=== PATIENT | female | born 1990 | race Two or more races ===

== ENCOUNTER 2024-01-29 19:14 | Emergency (ER) | payer MEDICAID, SELFPAY ==
[2024-01-29 19:26] VITALS: PULSE 88; RESP 18; O2SAT 97; BMI 29.8
[2024-01-29 19:50] VITALS: BP 125/80; PULSE 82; RESP 19; TEMP 36.5; O2SAT 96
--- NOTE | 2024-01-29 20:09 | XR_ITS ---
Examination: PA lateral chest 2 views Technique: Upright PA lateral chest 2 views Exam date and time: January 29, 20242018 hrs. Comparison September 30, 2023 Indications: Substernal chest pain today Findings: Normal heart size Lungs are clear The osseous structures are intact Impression: No active disease
--- NOTE | 2024-01-29 20:10 | EDRME_ITS ---
Rapid Medical Screening Exam RME Arrival date/time: 01/29/24 19:14 Chief Complaint: Anxiety Time Seen by Provider: 01/29/24 19:50 Vital signs: Vital Signs Temperature 97.7 F 01/29/24 19:50 Pulse Rate 82 01/29/24 19:50 Respiratory Rate 19 01/29/24 19:50 Blood Pressure 125/80 01/29/24 19:50 Pulse Oximetry (%) 96 01/29/24 19:50 Oxygen Delivery Method Room Air 01/29/24 19:50 Vital signs reviewed by provider: Yes RME Narrative: 33-year-old female with past medical history of anxiety disorder presents for evaluation of chest pressure. She describes it as sharp pressure that radiates from her back to her substernal chest. She reports that this has occurred intermittently x 1 day. She notes increased external stressors at home and work . States that her symptoms are different than prior panic attacks.
[2024-01-29 20:58] LABS: Collection Type, Urine Clean Catch
[2024-01-29 21:05] LABS: HCG Qualitative,Urine Negative
[2024-01-29 21:08] LABS: Bacteria,Urine Rare; Bilirubin,Urine Negative (Negative); Blood,Urine Negative (Negative); Clarity,Urine Clear (Clear/Hazy); Color,Urine Yellow (Lt Yel-Yel); Glucose, Urine Trace (Negative); Ketones,Urine 1+ (Negative); Leukocyte Esterase,Urine Negative (Negative); Nitrite,Urine Negative (Negative); Protein,Urine 1+ (Neg - Trace); RBC,Urine 2 /hpf (0-3); Specific Gravity,Urine 1.023 (1.001-1.035); Squamous Epithelial Cell,Urine 1 /hpf (0-5); WBC,Urine 4 /hpf (0-5)
[2024-01-29 21:09] LABS: Basophils % (Auto) 0 % (0-2.5); Eosinophils % (Auto) 0 % (0-10); Hematocrit 39.5 % (36.0-46.0); Hemoglobin 13.2 g/dL (12.0-16.0); Immature Granulocytes % (Auto) 1 % (0-0); Immature Granulocytes Auto 0.04 Thou/mm3 (0.00-0.00); Lymphocytes # (Auto) 0.9 Thou/mm3 (1.0-4.8); Lymphocytes % (Auto) 11 % (10-50); Mean Corpuscular HGB Conc 33.4 g/dl (31.0-37.0); Mean Corpuscular Hemoglobin 29.6 pg (25.0-35.0); Mean Corpuscular Volume 89 fL (80-100); Monocytes # (Auto) 0.4 Thou/mm3 (0.0-0.8); Monocytes % (Auto) 5 % (0-12); Neutrophils # (Auto) 6.8 Thou/mm3 (1.8-7.7); Neutrophils % (Auto) 83 % (37-80); Nucleated Red Blood Cell % 0 /100 WBC (0); Platelet Count 273 Thou/mm3 (140-440); RDW Standard Deviation 41.5 fL (36.4-46.3); Red Blood Count 4.46 Miln/mm3 (4.00-5.20); White Blood Count 8.2 Thou/mm3 (3.6-11.0)
[2024-01-29 21:17] LABS: Amphetamine/Methamp Scrn,U Negative (Negative); Barbiturate Screen,Urine Negative (Negative); Benzodiazepines Screen,Urine Negative (Negative); THC Screen,Urine Negative (Negative)
[2024-01-29 21:18] LABS: Benzoylecgonine Screen, Ur Negative (Negative); Fentanyl Screen,Urine Negative (Negative); Opiate Screen,Urine Negative (Negative)
[2024-01-29 21:21] LABS: INR 1.1 (0.9-1.3); Partial Thromboplastin Time 26.1 Seconds (22.0-36.0); Prothrombin Time 11.5 Seconds (9.0-12.2)
[2024-01-29 21:24] LABS: Alanine Aminotransferase 30 U/L (10-49); Albumin, Serum 4.8 gm/dL (3.5-5.0); Albumin/Globulin Ratio 1.7 (1.2-2.2); Alkaline Phosphatase 82 U/L (46-116); Anion Gap 5 (7-16); Aspartate Amino Transferase 34 U/L (0-34); B-Type Natriuretic Peptide < 20 pg/mL (0-100); BUN/Creatinine Ratio 18 Ratio (12-20); Bilirubin,Total 0.6 mg/dL (0.3-1.2); Blood Urea Nitrogen 11 mg/dL (9-23); Calcium 9.9 mg/dL (8.3-10.6); Calcium (Corrected) 9.9 mg/dL (8.5-10.1); Carbon Dioxide 28.3 mMol/L (20.0-31.0); Chloride 105 mMol/L (98-107); Creatinine (Component) 0.6 mg/dL (0.6-1.3); Estimated Creatinine Clearance 123.2 mL/min (>60); Globulin 2.8 gm/dL (2.3-3.5); Glucose 113 mg/dL (74-106); Magnesium 2.1 mg/dL (1.6-2.6); Osmolality,Calculated 276 (275-295); Potassium 3.4 mMol/L (3.4-5.1); Sodium 138 mMol/L (136-145); Total Protein 7.6 gm/dL (5.7-8.2); Troponin I < 0.002 ng/mL (0.0-0.045); eGFR > 60 See Note
[2024-01-29 22:34] VITALS: BP 108/71; PULSE 70; RESP 18; TEMP 37; O2SAT 98
--- NOTE | 2024-05-01 18:26 | EDNOTE_ITS ---
ED Anxiety RME/HPI General Chief Complaint: Anxiety Stated Complaint: ANXIETY Time Seen by Provider: 01/29/24 19:50 Arrival date/time: 01/29/24 19:14 Limitations: no limitations RME / HPI RME / HPI narrative: 33-year-old female with past medical history of anxiety disorder presents for evaluation of chest pressure. She describes it as sharp pressure that radiates from her back to her substernal chest. She reports that this has occurred intermittently x 1 day. She notes increased external stressors at home and work. States that her symptoms are different than prior panic attacks. Related Data Home Medications ?Medication ?Instructions ?Recorded ?Confirmed vitamins-iron fumarate 27 1 tab PO QDAY 07/03/19 12/19/22 mg iron-folic acid 0.8 mg tablet ( Vitamin) Previous Rx's ?Medication ?Instructions ?Recorded docusate sodium 100 mg capsule 100 mg PO BID #60 caps 12/19/22 (Colace) ibuprofen 800 mg tablet 800 mg PO Q6H PRN pain #120 tabs 12/19/22 lanolin 50 % topical ointment 1 applic topical TID PRN skin 12/19/22 irritation #15 tubes lorazepam 0.5 mg tablet (Ativan) 0.5 mg PO QDAY PRN anxiety #5 tabs 01/30/24 Allergies Allergy/AdvReac Type Severity Reaction Status Date / Time No Known Allergies Allergy Verified 12/19/22 13:13 Review of Systems Constitutional Constitutional: Reports as per HPI Cardiovascular Cardiovascular: Reports as per HPI and Denies dyspnea Respiratory Respiratory: Denies cough and Denies dyspnea Gastrointestinal Gastrointestinal: Denies nausea and Denies vomiting Neurologic Neurologic: Reports as per HPI Psychiatric Psychiatric: Reports anxiety Past Medical History Past Medical History NEUROLOGIC: Negative Neurological Disorders CARDIAC: Positive Hypertension; Negative Cardiac Disorders or Congestive Heart Failure RESPIRATORY: Negative Chronic Obstructive Pulmonary Disease (COPD) GASTROINTESTINAL: Negative Gastrointestinal Disorders, Hepatitis or Colorectal Cancer GENITOURINARY: Negative Genitourinary Disorders, Renal Disease or Prostate Cancer REPRODUCTIVE: Positive Previous Pregnancies; Negative Breast Cancer, Pelvic Inflammatory Disease or Testicular Cancer MUSCULOSKELETAL: Negative Musculoskeletal Disorders or Bone Cancer ENDOCRINE: Negative Endocrine Disorders, Diabetes Mellitus Type 1, Diabetes Mellitus Type 2, [place]'s Syndrome, [place]'s Disease or Adrenal Disease HEMATOLOGIC: Negative Blood Disorders OTHER HISTORY: Positive Hospitalization; Negative Autoimmune Disease, Down Syndrome, Developmental Delay, Shingles, Falls, Blood Transfusions, Blood Transfusion Reaction, Anesthesia Reactions, MRSA, VRSA, Vancomycin-Resistant Enterococci, Human Immunodeficiency Virus (HIV), Chicken Pox, Measles, Mumps, Pertussis, Clostridium Difficile, Cancer, Breast Cancer, Cervical Cancer, Colorectal Cancer, Lung Cancer, Ovarian Cancer, Prostate Cancer or Testicular Cancer Family History FAMILY HISTORY: Negative Family Psychiatric Problems, Family Respiratory Disorders, Family Cardiac Disorders, Family Gastrointestinal Problems, Family Cancer, Family Surgery or Family Anesthesia Reaction Surgical History SURGICAL: Negative Section Social History SMOKING STATUS: Never smoker ED Exam General Limitations: Present no limitations General appearance: Present alert and in no apparent distress Head Head exam: Present atraumatic and normocephalic Eye Eye exam: Present normal appearance and EOMI ENT ENT exam: Present normal exam and normal oropharynx Neck Neck exam: Present normal inspection and full ROM Respiratory Respiratory exam: Present normal lung sounds bilaterally; Absent respiratory distress Cardiovascular Cardiovascular exam: Present regular rate Neurological Exam Neurological exam: Present alert Psychiatric Psychiatric exam: Present anxious Skin Skin exam: Present warm and dry Course Quality Measures none Orders Category Date Time Status EKG (ED ONLY) *Do not use* NOW Care 01/29/24 20:09 Completed EKG (ED Only) Stat Exams 01/29/24 20:09 Ordered XR chest 2V Stat Exams 01/29/24 20:09 Completed B-Type Natriuretic Peptide Stat Lab 01/29/24 20:40 Completed CBC Stat Lab 01/29/24 20:40 Completed Comprehensive Metabolic Panel Stat Lab 01/29/24 20:40 Completed Drug Screen,Urine Stat Lab 01/29/24 20:30 Completed HCG Qualitative,Urine Stat Lab 01/29/24 20:30 Completed Magnesium Stat Lab 01/29/24 20:40 Completed Partial Thromboplastin Time Stat Lab 01/29/24 20:40 Completed Prothrombin Time with INR Stat Lab 01/29/24 20:40 Completed Troponin I Stat Lab 01/29/24 20:40 Completed Urinalysis Stat Lab 01/29/24 20:30 Completed Vital Signs Vital signs: Vital Signs Temperature 97.7 F 01/29/24 19:50 Pulse Rate 82 01/29/24 19:50 Respiratory Rate 19 01/29/24 19:50 Blood Pressure 125/80 01/29/24 19:50 Pulse Oximetry (%) 96 01/29/24 19:50 Oxygen Delivery Method Room Air 01/29/24 19:50 pulse ox 96% on RA, wnl. Anxiety MDM Narrative MDM Narrative: 33-year-old female presenting for evaluation of chest pain. Vital signs stable. Patient endorses prior similar symptoms with acute anxiety and endorses increased stressors at home. Given her symptoms we obtained a cardiac workup which was fortunately negative. Patient was given a dose of Ativan in the department with improvement in her symptoms. She was just discharged with a short course of Ativan with plan to follow-up with primary care in the next several days for further evaluation and treatment. Patient was stable at time of discharge. Patient data External records reviewed:: [facility] previous records Clinical information provided by:: patient Social determinants that could affect healthcare access:: none Patient has the following chronic illnesses:: Generalized anxiety and panic attacks. How is presenting disease/condition affected by chronic disease/condition?: exacerbated by Evaluation data The following diagnostics were reviewed and interpreted by me:: lab results, radiology exam(s) and EKG tracing(s) Lab and/or radiology exams considered but not ordered:: Considered not ordered. Interpretation Summary: Troponin negative. No evidence of endorgan damage or gross electrolyte abnormalities. Nonspecific ST changes on EKG. No consolidations, no pneumothorax, trachea midline on chest x-ray. Medications / Prescriptions Medications or Prescriptions considered but not ordered:: Rx given. Medication administrations:: Rx given. Consultations Consultation(s) initiated? (list below): No Diagnosis Differential diagnosis anxiety: hyperventilation, panic disorder, acute anxiety and other (ACS. ) Most likely diagnosis given after review of the tests above:: Anxiety. Admission Indicated Admission indicated?: not indicated Admission Request Was there a request for admission?: No Disposition Plan Disposition Plan: Discharge Discharge Attestation Discharge Attestation: The patient and all family members were given an opportunity to ask questions and understood the discharge instructions. Discharge instructions specifically effects, indications for sooner follow up or return to the emergency department, and the expected course of current diagnosis. Patient condition: Stable Discharge Plan Plan Patient Disposition: HOME (Self Care) Disposition Comment: stable Prescriptions/Referrals Prescriptions/Med Rec: New lorazepam [Ativan] 0.5 mg tablet 0.5 mg PO QDAY PRN (Reason: anxiety) Qty: 5 0RF No Action Vitamin 27 mg iron- 0.8 mg Tablet 1 tab PO QDAY ibuprofen 800 mg tablet 800 mg PO Q6H MDD 4 PRN (Reason: pain) Qty: 120 0RF docusate sodium [Colace] 100 mg capsule 100 mg PO BID Qty: 60 0RF lanolin 50 % ointment 1 applic topical TID PRN (Reason: skin irritation) Qty: 15 0RF Referrals: Linh Quevedo FNP-C [Primary Care Provider] - In 1 week Problem List Clinical Impression: Atypical chest pain Patient/Caregiver Discharge Instructions Other Activity Instructions:: Take Ativan as needed for anxiety. Follow-up with primary care doctor in the next 24 to 48 hours for reevaluation and management of symptoms. Return to the ED if her symptoms change or worsen. Education Materials: ED Chest Pain, Uncertain Cause Print Language: Portuguese Stand Alone Forms: Stacie Award Info., Patient Portal Info Letter PA/NE Supervising Physician KELL/NE Supervising Physician: Dr. Flaco BOOKER Attestation MD Attestation The patient was seen by the midlevel practitioner. I, the co-signing physician, was present during the entire ER visit. While I did not physically examine the patient, I was available for consultation as needed. I agree with the plan and documentation.
== END 2024-01-30 02:05 | disposition home or self-care (01) ==
PROVIDERS: Physician Assistant; Emergency Provider Emergency Medicine; PCP Nurse Practitioner Family
DX: R07.89 Other chest pain (principal)
CPT/HCPCS: 36415; 71046; 80053; 80307; 81001; 81025; 83735; 83880; 84484; 85025; 85610; 85730; 93005; 99283